=== PATIENT | male | born 1945 | race Hispanic/Latino ===

== ENCOUNTER 2021-02-27 16:39 | Emergency (ER) | payer MEDICARE ==
[2021-02-27 19:40] LABS: Bilirubin Neg (Negative); Blood, Urine 25 (Negative); Clarity Clear (Clear); Glucose, Urine (Dipstick) Normal (Negative); Ketone, Urine Negative (Negative); Leukocyte 25 (Negative); Nitrite Negative (Negative); Protein, Urine (Dipstick) 15 mg/dl (Neg-Trace); Specific Gravity, Urine 1.015 (1.002-1.036); Urobilinogen Normal mg/dL (Less than 2)
[2021-02-27 19:58] LABS: Anion Gap 10 mmol/L (10-20); BUN (Urea Nitrogen) 14 mg/dL (8.4-25.7); Calc. Creatinine Clearance 0 mL/min (70-130); Calcium 8.5 mg/dL (7.8-10.44); Carbon Dioxide 25 mmol/L (23-31); Chloride 107 mmol/L (98-107); Glucose 105 mg/dL (83-110); Potassium 4.3 mmol/L (3.5-5.1); Sodium 138 mmol/L (136-145)
[2021-02-27 20:10] LABS: RBC/HPF 0-3 HPF (0-3); WBC/HPF 0-3 HPF (0-3)
[2021-02-27 20:11] LABS: Bacteria/HPF None Seen HPF (None Seen); Squamous Epithelial None Seen HPF (0-3)
== END 2021-02-27 20:38 | disposition home or self-care (01) ==
LOC: CSHERS 16:39
DX: R33.9 Retention of urine, unspecified (principal)
CPT/HCPCS: 36415; 51702; 80048; 81003; 81015

== ENCOUNTER 2023-01-16 07:23 | Emergency (ER) | payer MEDICARE, OTHER ==
[2023-01-16 08:20] LABS: Bilirubin Neg (Negative); Blood, Urine 10 (Negative); Clarity Clear (Clear); Glucose, Urine (Dipstick) Normal (Negative); Ketone, Urine Negative (Negative); Leukocyte Negative (Negative); Nitrite Negative (Negative); Protein, Urine (Dipstick) 15 mg/dl (Neg-Trace); Urobilinogen Normal mg/dL (Less than 2)
[2023-01-16 08:35] LABS: Bacteria/HPF None Seen HPF (None Seen); RBC/HPF 0-3 HPF (0-3); Squamous Epithelial None Seen HPF (0-3); WBC/HPF 0-3 HPF (0-3)
== END 2023-01-16 09:30 | disposition home or self-care (01) ==
LOC: CSHERS 07:23
DX: R33.9 Retention of urine, unspecified (principal)
CPT/HCPCS: 51702; 81003; 81015

== ENCOUNTER 2023-01-18 21:56 | Emergency (ER) | payer OTHER ==
[2023-01-18 22:57] LABS: Bilirubin Neg (Negative); Blood, Urine 250 (Negative); Clarity Clear (Clear); Glucose, Urine (Dipstick) Normal (Negative); Ketone, Urine Negative (Negative); Leukocyte 100 (Negative); Nitrite Negative (Negative); Protein, Urine (Dipstick) 100 mg/dl (Neg-Trace); Specific Gravity, Urine 1.015 (1.005-1.030); pH, Urine 6.5 (5.0-9.0)
[2023-01-18 23:08] LABS: Bacteria/HPF 1+ HPF (None Seen); Squamous Epithelial 0-3 HPF (0-3); WBC/HPF 0-3 HPF (0-3)
== END 2023-01-18 23:23 | disposition home or self-care (01) ==
LOC: CSHERS 21:56
DX: T83.031A Leakage of indwelling urethral catheter, initial encounter (principal)
CPT/HCPCS: 51702; 81003; 81015

== ENCOUNTER 2023-03-08 05:32 | Emergency (ER) | payer OTHER ==
[2023-03-08 06:13] LABS: Bilirubin Neg (Negative); Blood, Urine Negative (Negative); Clarity Clear (Clear); Glucose, Urine (Dipstick) Normal (Negative); Ketone, Urine Negative (Negative); Leukocyte Negative (Negative); Nitrite Negative (Negative); Protein, Urine (Dipstick) 15 mg/dl (Neg-Trace); pH, Urine 6.5 (5.0-9.0)
== END 2023-03-08 06:24 | disposition home or self-care (01) ==
LOC: CSHERS 05:32
DX: R33.9 Retention of urine, unspecified (principal)
CPT/HCPCS: 51702; 81003

== ENCOUNTER 2023-06-26 09:22 | Outpatient (CLI) | payer OTHER ==
[2023-06-26] MEDS ORDERED: Iopamidol 300 61% 100 ML VIAL FS ONE (10:22)
== END 2023-06-26 09:23 | disposition home or self-care (01) ==
LOC: CSHCT 09:22
PROVIDERS: ATTEND Urology
DX: N40.1 Benign prostatic hyperplasia with lower urinary tract symptoms (principal); R33.9 Retention of urine, unspecified; Z87.440 Personal history of urinary (tract) infections; N28.1 Cyst of kidney, acquired; K57.90 Diverticulosis of intestine, part unspecified, without perforation or abscess without bleeding; M89.8X8 Other specified disorders of bone, other site
CPT/HCPCS: 74178; 82565; Q9967

== ENCOUNTER 2023-07-03 12:20 | Outpatient (CLI) | payer OTHER | END 2023-07-03 12:21 | disposition home or self-care (01) | LOC: CSHMRI 12:20 | PROVIDERS: ATTEND Urology | DX: N40.1 Benign prostatic hyperplasia with lower urinary tract symptoms (principal); R97.20 Elevated prostate specific antigen [PSA]; R33.9 Retention of urine, unspecified; Z87.440 Personal history of urinary (tract) infections; Z98.890 Other specified postprocedural states | CPT/HCPCS: 72197; 82565 ==

== ENCOUNTER 2023-07-21 10:09 | Inpatient (IN) | payer OTHER ==
[2023-07-21 12:14] LABS: Hematocrit 36.5 % (38.8-50.0); Hemoglobin 11.8 g/dL (13.5-17.5); Mean Corpuscular HGB CONC 32.3 g/dL (32.0-36.0); Mean Corpuscular Hemoglobin 31.4 pg (27.0-33.0); Mean Corpuscular Volume 97.1 fl (81.2-95.1); Mean Platelet Volume 8.9 fl (7.4-10.4); Platelet Count 155 10x3/uL (130-400); RBC Distribution Width 15.4 % (11.5-14.5); Red Blood Cell (RBC) Count 3.76 10x6/uL (4.32-5.72); White Blood Cell (WBC) Count 19.5 10x3/uL (3.5-10.5)
[2023-07-21 12:15] LABS: MDiff Complete? YES
[2023-07-21] MEDS ORDERED: cefTRIAXone (ROCEPHIN) 2 GM VIAL ONE (12:20)
[2023-07-21 12:21] LABS: ALT (SGPT) Less than 7 U/L (8-55); AST (SGOT) 7 U/L (5-34); Albumin 4.3 g/dL (3.4-4.8); Alkaline Phosphatase 61 U/L (40-110); Bilirubin, Total 0.9 mg/dL (0.2-1.2); Globulin 3.3 g/dL (2.4-3.5); Protein, Total 7.6 g/dL (5.8-8.1)
[2023-07-21] MEDS ORDERED: Vancomycin 1 GM VIAL ONE (12:21)
[2023-07-21] MEDS ORDERED: Vancomycin HCl 500 MG VIAL ONE (12:21)
[2023-07-21 12:22] LABS: Anion Gap 20 mmol/L (10-20); BUN (Urea Nitrogen) 16 mg/dL (8.4-25.7); Calc. Creatinine Clearance 0 mL/min (70-130); Calcium 9.4 mg/dL (7.6-10.4); Carbon Dioxide 18 mmol/L (23-31); Chloride 105 mmol/L (98-107); Estimated GFR 45; Glucose 227 mg/dL (83-110)
[2023-07-21 12:23] LABS: Potassium 3.3 mmol/L (3.5-5.1); Sodium 140 mmol/L (136-145)
[2023-07-21 12:57] LABS: Bilirubin Neg (Negative); Blood, Urine 250 (Negative); Clarity Bloody (Clear); Glucose, Urine (Dipstick) 100 mg/dL (Negative); Ketone, Urine 5 mg/dL (Negative); Leukocyte 100 (Negative); Nitrite Negative (Negative); Protein, Urine (Dipstick) 100 mg/dl (Neg-Trace)
[2023-07-21 13:12] LABS: RBC/HPF Greater than 50 HPF (0-3)
[2023-07-21 13:13] LABS: Bacteria/HPF Rare-Few HPF (None Seen); CAUTI Indications for Culture Dysuria,urgency,freq; Squamous Epithelial 0-3 HPF (0-3); WBC/HPF 0-3 HPF (0-3)
[2023-07-21 13:14] LABS: Urine Culture Reflex No No
[2023-07-21 13:17] LABS: Band 18 % (5-11); Lymphocytes 2 % (21-51); Monocytes 23 % (0-10); Neutrophil 57 % (42-75)
[2023-07-21 13:20] LABS: Anisocytosis SLIGHT = 6-15 cells (100X) (0-5/hpf); Macrocytosis SLIGHT = 6-15 cells (100X) (0-5/hpf); Ovalocytes SLIGHT = 2-5 cells (100X) (0-1/hpf)
[2023-07-21 13:21] LABS: Platelet Adequacy Comment Appears Adequate
[2023-07-21] MEDS ORDERED: Potassium Chloride 20 MEQ TAB ONE (14:04)
[2023-07-21 15:08] LABS: Lactic Acid 2.2 mmol/L (0.5-2.2)
[2023-07-21] MEDS ORDERED: Iopamidol 300 61% 100 ML VIAL FS ONE (15:12)
[2023-07-21] MEDS ORDERED: Ondansetron PF 4 MG/2 ML Vial ONE (17:36)
[2023-07-21] MEDS ORDERED: Senokot S 8.6-50 MG TAB PO PRN (17:42)
[2023-07-21] MEDS ORDERED: Ondansetron ODT 4 MG TAB PO PRN (17:42)
[2023-07-21] MEDS ORDERED: Acetaminophen 325 MG TAB PO PRN (17:42)
[2023-07-21] MEDS ORDERED: Acetaminophen 650 MG Suppository PR PRN (17:42)
[2023-07-21] MEDS ORDERED: Guaifenesin DM 100-10/5 ML UDCUP PO PRN (17:42)
[2023-07-21] MEDS ORDERED: Ondansetron PF 4 MG/2 ML Vial IVP PRN (17:42)
[2023-07-21] MEDS: Sodium Chloride 0.9% 1,000 ML IV SCH (20:15)
[2023-07-21 20:16] VITALS: BMI 18.7
[2023-07-21] MEDS ORDERED: Vancomycin 1 GM in Premix Bag 1 BAG IVPB SCH (21:00)
[2023-07-21] MEDS: Famotidine 20 MG TAB PO SCH (22:36)
[2023-07-21] MEDS: Zolpidem Tartrate 5 MG TAB PO PRN (23:10)
[2023-07-22 04:04] LABS: Anion Gap 13 mmol/L (10-20); BUN (Urea Nitrogen) 13 mg/dL (8.4-25.7); Calc. Creatinine Clearance 46 mL/min (70-130); Calcium 7.8 mg/dL (7.8-10.44); Carbon Dioxide 21 mmol/L (23-31); Chloride 109 mmol/L (98-107); Estimated GFR 62; Glucose 102 mg/dL (83-110); Magnesium 1.7 mg/dL (1.6-2.6); Potassium 3.9 mmol/L (3.5-5.1); Sodium 139 mmol/L (136-145)
[2023-07-22 04:30] LABS: #Monocytes 2.3 10x3/uL (0.0-1.1); #Neutrophils 9.9 10x3/uL (1.5-8.4); %Basophils 0.1 % (0.0-2.0); %Lymphocytes 4.5 % (18.0-47.0); %Monocytes 17.6 % (0.0-10.0); %Neutrophils 76.6 % (40.0-75.0); Hemoglobin 9.6 g/dL (13.5-17.5); Mean Corpuscular Hemoglobin 31.7 pg (27.0-33.0); Platelet Count 94 10x3/uL (150-450); RBC Distribution Width 15.4 % (11.5-14.5); Red Blood Cell (RBC) Count 3.03 10x6/uL (4.32-5.72); White Blood Cell (WBC) Count 12.9 10x3/uL (3.5-10.5)
[2023-07-22] MEDS: Sodium Chloride 0.9% 1,000 ML IV SCH (06:42)
[2023-07-22] MEDS ORDERED: Magnesium 2 GM/50 ML(in water) 2 GM in Premix Bag 1 BAG IVPB SCH (08:00)
[2023-07-22] MEDS: cefTRIAXone\\ROCEPHIN 2 GM in Sodium Chloride 0.9% 100 ML IVPB SCH (14:00)
[2023-07-22] MEDS: Vancomycin HCl 750 MG in Sodium Chloride 0.9% 250 ML 250 ML IVPB SCH (14:01)
[2023-07-22] MEDS: Zolpidem Tartrate 5 MG TAB PO PRN (21:33)
[2023-07-22] MEDS: Famotidine 20 MG TAB PO SCH (21:33)
[2023-07-23] MEDS: Sodium Chloride 0.9% 1,000 ML IV SCH ×3 (06:28→23:15)
[2023-07-23 07:23] LABS: #Monocytes 0.8 10x3/uL (0.0-1.1); #Neutrophils 5.4 10x3/uL (1.5-8.4); %Basophils 0.1 % (0.0-2.0); %Eosinophils 0.1 % (0.0-6.0); %Lymphocytes 7.4 % (18.0-47.0); %Monocytes 12.2 % (0.0-10.0); %Neutrophils 78.3 % (40.0-75.0); Hematocrit 29.9 % (38.8-50.0); Hemoglobin 9.6 g/dL (13.5-17.5); Mean Corpuscular HGB CONC 32.1 g/dL (32.0-36.0); Mean Corpuscular Hemoglobin 31.3 pg (27.0-33.0); Mean Corpuscular Volume 97.4 fl (81.2-95.1); Mean Platelet Volume 8.8 fl (7.4-10.4); Platelet Count 88 10x3/uL (150-450); RBC Distribution Width 15.2 % (11.5-14.5); Red Blood Cell (RBC) Count 3.07 10x6/uL (4.32-5.72); White Blood Cell (WBC) Count 6.9 10x3/uL (3.5-10.5)
[2023-07-23 07:42] LABS: Anion Gap 11 mmol/L (10-20); BUN (Urea Nitrogen) 17 mg/dL (8.4-25.7); Calc. Creatinine Clearance 51 mL/min (70-130); Carbon Dioxide 20 mmol/L (23-31); Chloride 109 mmol/L (98-107); Estimated GFR 70; Glucose 88 mg/dL (83-110); Magnesium 1.9 mg/dL (1.6-2.6); Potassium 3.6 mmol/L (3.5-5.1); Sodium 136 mmol/L (136-145)
[2023-07-23 12:36] LABS: Vancomycin, Trough 5.8 ug/mL
[2023-07-23] MEDS: cefTRIAXone\\ROCEPHIN 2 GM in Sodium Chloride 0.9% 100 ML IVPB SCH (14:34)
[2023-07-23] MEDS: Vancomycin HCl 750 MG in Sodium Chloride 0.9% 250 ML 250 ML IVPB SCH (14:34)
[2023-07-23] MEDS: Famotidine 20 MG TAB PO SCH (20:56)
[2023-07-23] MEDS: Magnesium Oxide 400 MG TAB PO SCH (20:56)
[2023-07-23] MEDS: Zolpidem Tartrate 5 MG TAB PO PRN (23:14)
[2023-07-24] MEDS: Magnesium Oxide 400 MG TAB PO SCH (09:36)
[2023-07-24 11:36] VITALS: BP 143/63; TEMP 98.1
[2023-07-24] MEDS: cefTRIAXone\\ROCEPHIN 2 GM in Sodium Chloride 0.9% 100 ML IVPB SCH (13:05)
[2023-07-24] MEDS: Vancomycin HCl 750 MG in Sodium Chloride 0.9% 250 ML 250 ML IVPB SCH (13:05)
[2023-07-24] MEDS: Sodium Chloride 0.9% 1,000 ML IV SCH (13:06)
== END 2023-07-24 16:25 | disposition home or self-care (01) | DRG 698 ==
LOC: CSHERS 10:09 → CSHTELE 16:44 → CSHICU 20:41 → CSHTELE 20:41
PROVIDERS: ADMIT Emergency Medicine; ATTEND Internal Medicine
PROC: 0T2BX0Z Change Drainage Device in Bladder, External Approach (ICD-10-PCS; principal; 2023-07-21)
PROC: 3E03329 Introduction of Other Anti-infective into Peripheral Vein, Percutaneous Approach (ICD-10-PCS; 2023-07-21)
DX: T83.511A Infection and inflammatory reaction due to indwelling urethral catheter, initial encounter (principal); A41.2 Sepsis due to unspecified staphylococcus; A41.52 Sepsis due to Pseudomonas; R65.20 Severe sepsis without septic shock; E87.20 Acidosis, unspecified; N30.01 Acute cystitis with hematuria; N17.9 Acute kidney failure, unspecified; N40.1 Benign prostatic hyperplasia with lower urinary tract symptoms; R33.8 Other retention of urine; G47.00 Insomnia, unspecified; E87.6 Hypokalemia; N18.30 Chronic kidney disease, stage 3 unspecified; Y83.8 Other surgical procedures as the cause of abnormal reaction of the patient, or of later complication, without mention of misadventure at the time of the procedure; Z79.899 Other long term (current) drug therapy; Z98.890 Other specified postprocedural states
CPT/HCPCS: 36415; 74177; 80048; 80053; 80202; 81001; 83605; 83735; 85025; 87040; 87086; 94760; J0696; J1650; J2405; J3370; J3475; J3490; J7050; Q9967

== ENCOUNTER 2023-08-10 09:21 | Emergency (ER) | payer OTHER ==
[2023-08-10 11:08] LABS: #Monocytes 1.3 10x3/uL (0.0-1.1); #Neutrophils 5.3 10x3/uL (1.5-8.4); %Basophils 0.1 % (0.0-2.0); %Lymphocytes 3.6 % (18.0-47.0); %Monocytes 18.1 % (0.0-10.0); %Neutrophils 76.5 % (40.0-75.0); Hematocrit 37.9 % (38.8-50.0); Hemoglobin 12.3 g/dL (13.5-17.5); Mean Corpuscular HGB CONC 32.5 g/dL (32.0-36.0); Mean Corpuscular Hemoglobin 31.1 pg (27.0-33.0); Mean Corpuscular Volume 95.7 fl (81.2-95.1); Mean Platelet Volume 9.1 fl (7.4-10.4); Platelet Count 139 10x3/uL (150-450); Red Blood Cell (RBC) Count 3.96 10x6/uL (4.32-5.72)
[2023-08-10 11:34] LABS: ALT (SGPT) 7 U/L (8-55); AST (SGOT) 13 U/L (5-34); Albumin 4.1 g/dL (3.4-4.8); Alkaline Phosphatase 55 U/L (40-110); Anion Gap 13 mmol/L (10-20); BUN (Urea Nitrogen) 23 mg/dL (8.4-25.7); Bilirubin, Total 0.7 mg/dL (0.2-1.2); Calc. Creatinine Clearance 0 mL/min (70-130); Calcium 8.9 mg/dL (7.8-10.44); Carbon Dioxide 24 mmol/L (23-31); Chloride 106 mmol/L (98-107); Estimated GFR 46; Glucose 114 mg/dL (83-110); Potassium 3.9 mmol/L (3.5-5.1); Protein, Total 7.1 g/dL (5.8-8.1); Sodium 139 mmol/L (136-145)
[2023-08-10 13:14] LABS: Bilirubin Neg (Negative); Blood, Urine Negative (Negative); Clarity Clear (Clear); Glucose, Urine (Dipstick) Normal (Negative); Ketone, Urine Negative (Negative); Leukocyte Negative (Negative); Nitrite Negative (Negative); Protein, Urine (Dipstick) Negative (Neg-Trace); Urobilinogen Normal mg/dL (Less than 2)
[2023-08-10 13:26] LABS: Bacteria/HPF None Seen HPF (None Seen); CAUTI Indications for Culture Dysuria,urgency,freq; RBC/HPF 0-3 HPF (0-3); Squamous Epithelial 0-3 HPF (0-3); WBC/HPF 0-3 HPF (0-3)
[2023-08-10 13:28] LABS: Urine Culture Reflex No No
== END 2023-08-10 14:38 | disposition home or self-care (01) ==
LOC: CSHERS 09:21
DX: T83.091A Other mechanical complication of indwelling urethral catheter, initial encounter (principal); N17.9 Acute kidney failure, unspecified
CPT/HCPCS: 51702; 80053; 81001; 83735; 85025; 96360; 96361

== ENCOUNTER 2023-11-03 10:51 | Emergency (ER) | payer OTHER ==
[2023-11-03 12:04] LABS: ALT (SGPT) Less than 7 U/L (8-55); AST (SGOT) 11 U/L (5-34); Albumin 4.3 g/dL (3.4-4.8); Alkaline Phosphatase 59 U/L (40-110); Anion Gap 14 mmol/L (10-20); BUN (Urea Nitrogen) 16 mg/dL (8.4-25.7); Bilirubin, Total 0.6 mg/dL (0.2-1.2); Calc. Creatinine Clearance 0 mL/min (70-130); Calcium 9.1 mg/dL (7.8-10.44); Carbon Dioxide 24 mmol/L (23-31); Chloride 104 mmol/L (98-107); Estimated GFR 41; Globulin 3.2 g/dL (2.4-3.5); Glucose 247 mg/dL (83-110); Potassium 3.3 mmol/L (3.5-5.1); Protein, Total 7.5 g/dL (5.8-8.1); Sodium 139 mmol/L (136-145)
[2023-11-03 12:31] LABS: Bilirubin Neg (Negative); Blood, Urine 50 (Negative); Clarity Clear (Clear); Glucose, Urine (Dipstick) Normal (Negative); Ketone, Urine Negative (Negative); Leukocyte 25 (Negative); Nitrite Negative (Negative); Protein, Urine (Dipstick) 30 mg/dl (Neg-Trace); Specific Gravity, Urine 1.015 (1.005-1.030)
[2023-11-03 12:35] LABS: %Basophils 0.3 % (0.0-2.0); %Eosinophils 0.1 % (0.0-6.0); %Lymphocytes 6.1 % (18.0-47.0); %Monocytes 12.4 % (0.0-10.0); %Neutrophils 78.6 % (40.0-75.0); Hematocrit 39.1 % (38.8-50.0); Hemoglobin 12.8 g/dL (13.5-17.5); Mean Corpuscular HGB CONC 32.7 g/dL (32.0-36.0); Mean Corpuscular Hemoglobin 31.4 pg (27.0-33.0); Mean Corpuscular Volume 96.1 fl (81.2-95.1); Mean Platelet Volume 8.7 fl (7.4-10.4); Platelet Count 141 10x3/uL (150-450); RBC Distribution Width 14.1 % (11.5-14.5); Red Blood Cell (RBC) Count 4.07 10x6/uL (4.32-5.72); White Blood Cell (WBC) Count 7.7 10x3/uL (3.5-10.5)
[2023-11-03 12:58] LABS: Bacteria/HPF None Seen HPF (None Seen); CAUTI Indications for Culture Dysuria,urgency,freq; Squamous Epithelial 0-3 HPF (0-3); WBC/HPF 0-3 HPF (0-3)
[2023-11-03 12:59] LABS: Mucous/LPF 1+ LPF (<2+); Urine Culture Reflex No No
== END 2023-11-03 13:21 | disposition home or self-care (01) ==
LOC: CSHERS 10:51
DX: N39.0 Urinary tract infection, site not specified (principal); T83.091A Other mechanical complication of indwelling urethral catheter, initial encounter; Y84.6 Urinary catheterization as the cause of abnormal reaction of the patient, or of later complication, without mention of misadventure at the time of the procedure
CPT/HCPCS: 36415; 51702; 80053; 81001; 85025; 99283

== ENCOUNTER 2023-12-17 01:57 | Emergency (ER) | payer OTHER ==
[2023-12-17] MEDS ORDERED: HYDROcodone/Acetaminophen 10/325 mg Tablet ONE (03:40)
[2023-12-17 04:35] LABS: ALT (SGPT) 8 U/L (8-55); AST (SGOT) 11 U/L (5-34); Albumin 3.9 g/dL (3.4-4.8); Alkaline Phosphatase 55 U/L (40-110); Anion Gap 11 mmol/L (10-20); BUN (Urea Nitrogen) 13 mg/dL (8.4-25.7); Bilirubin, Total 0.6 mg/dL (0.2-1.2); Calc. Creatinine Clearance 0 mL/min (70-130); Calcium 8.7 mg/dL (7.8-10.44); Carbon Dioxide 26 mmol/L (23-31); Chloride 105 mmol/L (98-107); Estimated GFR 56; Globulin 2.8 g/dL (2.4-3.5); Glucose 122 mg/dL (83-110); Magnesium 1.9 mg/dL (1.6-2.6); Potassium 3.6 mmol/L (3.5-5.1); Protein, Total 6.7 g/dL (5.8-8.1); Sodium 138 mmol/L (136-145)
[2023-12-17 04:40] LABS: Hematocrit 35.6 % (38.8-50.0); Hemoglobin 11.7 g/dL (13.5-17.5); Mean Corpuscular HGB CONC 32.9 g/dL (32.0-36.0); Mean Corpuscular Hemoglobin 31.6 pg (27.0-33.0); Mean Corpuscular Volume 96.2 fl (81.2-95.1); Mean Platelet Volume 9.1 fl (7.4-10.4); Platelet Count 118 10x3/uL (150-450); RBC Distribution Width 14.1 % (11.5-14.5); White Blood Cell (WBC) Count 9.4 10x3/uL (3.5-10.5)
[2023-12-17 04:46] LABS: Bilirubin Neg (Negative); Blood, Urine 250 (Negative); Clarity Cloudy (Clear); Glucose, Urine (Dipstick) Normal (Negative); Ketone, Urine Negative (Negative); Leukocyte 500 (Negative); Nitrite Negative (Negative); Protein, Urine (Dipstick) 30 mg/dl (Neg-Trace); Specific Gravity, Urine 1.005 (1.005-1.030)
[2023-12-17 05:01] LABS: Lymphocytes 11 % (21-51); Monocytes 16 % (0-10); Neutrophil 73 % (42-75); Platelet Adequacy Comment Appears Decreased; RBC Morph Comment Within Normal Limits
[2023-12-17 05:15] LABS: MDiff Complete? YES
[2023-12-17 05:25] LABS: RBC/HPF Greater than 50 HPF (0-3)
[2023-12-17 05:26] LABS: Bacteria/HPF 4+ HPF (None Seen); CAUTI Indications for Culture Pelvic or flank pain; Squamous Epithelial 0-3 HPF (0-3); Transitional Epithelial 0-3 HPF (None Seen)
[2023-12-17 05:27] LABS: Urine Culture Reflex No No
[2023-12-17] MEDS ORDERED: Ciprofloxacin 500 MG TAB PO SCH (05:45)
[2023-12-17] MEDS ORDERED: cefTRIAXone (ROCEPHIN) 2 GM VIAL ONE (05:50)
== END 2023-12-17 06:45 | disposition home or self-care (01) ==
LOC: CSHERS 01:57
DX: T83.018A Breakdown (mechanical) of other urinary catheter, initial encounter (principal); N39.0 Urinary tract infection, site not specified; R31.9 Hematuria, unspecified
CPT/HCPCS: 36415; 51798; 80053; 81001; 83605; 83735; 85025; 87077; 87086; 87186; 96365; J0696

== ENCOUNTER 2024-03-31 14:28 | Emergency (ER) | payer OTHER ==
[2024-03-31 15:42] LABS: Bilirubin Neg (Negative); Blood, Urine 250 (Negative); Clarity Cloudy (Clear); Glucose, Urine (Dipstick) Normal (Negative); Ketone, Urine 5 mg/dL (Negative); Leukocyte 500 (Negative); Nitrite Negative (Negative); Protein, Urine (Dipstick) 30 mg/dl (Neg-Trace); Specific Gravity, Urine 1.015 (1.005-1.030); Urobilinogen Normal mg/dL (Less than 2)
[2024-03-31 16:38] LABS: Bacteria/HPF Rare-Few HPF (None Seen); CAUTI Indications for Culture Pelvic or flank pain; Mucous/LPF 2+ LPF (<2+); RBC/HPF Greater than 50 HPF (0-3); Squamous Epithelial None Seen HPF (0-3); WBC/HPF Greater Than 50 HPF (0-3)
[2024-03-31 16:39] LABS: Transitional Epithelial 0-3 HPF (None Seen)
[2024-03-31 16:41] LABS: Urine Culture Reflex Yes Yes
== END 2024-03-31 17:05 | disposition home or self-care (01) ==
LOC: CSHERS 14:28
DX: T83.091A Other mechanical complication of indwelling urethral catheter, initial encounter (principal)
CPT/HCPCS: 81001; 87086; 99283

== ENCOUNTER 2024-05-14 15:46 | Emergency (ER) | payer OTHER | END 2024-05-14 17:54 | disposition home or self-care (01) | LOC: CSHERS 15:46 | DX: T83.091A Other mechanical complication of indwelling urethral catheter, initial encounter (principal) | CPT/HCPCS: 51702; 99283 ==

== ENCOUNTER 2024-08-21 14:45 | Emergency (ER) | payer OTHER ==
[~2024-08-21 14:45] MED LIST: Iopamidol 300 61% 100 ML VIAL FS ONE
[2024-08-21 16:07] LABS: Clarity Slightly Cloudy (Clear)
[2024-08-21 16:21] LABS: Glucose, Urine (Dipstick) Unable to Interpret mg/dL (Negative); Ketone, Urine Unable to Interpret mg/dL (Negative); Leukocyte Unable to Interpret (Negative); Nitrite Unable to Interpret (Negative); Protein, Urine (Dipstick) Unable to Interpret mg/dl (Neg-Trace)
[2024-08-21 16:22] LABS: Bacteria/HPF Rare-Few HPF (None Seen); Bilirubin Unable to Interpret (Negative); Blood, Urine Unable to Interpret (Negative); CAUTI Indications for Culture Dysuria,urgency,freq; RBC/HPF 0-3 HPF (0-3); Squamous Epithelial 0-3 HPF (0-3); Urobilinogen UNABLE TO INTERPRET mg/dL (Less than 2); WBC/HPF 21-50 HPF (0-3)
[2024-08-21 16:24] LABS: Urine Culture Reflex Yes Yes
[2024-08-21] MEDS ORDERED: LevoFLOXacin 500 MG TAB ONE (17:34)
[2024-08-21 18:04] LABS: ALT (SGPT) Less than 7 U/L (8-55); AST (SGOT) 11 U/L (5-34); Albumin 3.5 g/dL (3.4-4.8); Alkaline Phosphatase 59 U/L (40-110); Anion Gap 15 mmol/L (10-20); BUN (Urea Nitrogen) 18 mg/dL (8.4-25.7); Bilirubin, Total 0.7 mg/dL (0.2-1.2); Calc. Creatinine Clearance 0 mL/min (70-130); Calcium 9.5 mg/dL (7.8-10.44); Carbon Dioxide 22 mmol/L (23-31); Chloride 102 mmol/L (98-107); Estimated GFR 48; Globulin 3.8 g/dL (2.4-3.5); Glucose 94 mg/dL (83-110); Lipase 80 U/L (8-78); Potassium 3.2 mmol/L (3.5-5.1); Protein, Total 7.3 g/dL (5.8-8.1); Sodium 136 mmol/L (136-145)
[2024-08-21 18:06] LABS: #Basophils 0.03 10x3/uL (0.0-0.2); #Eosinphils 0.06 10x3/uL (0.0-0.5); #Monocytes 4.62 10x3/uL (0.0-1.1); #Neutrophils 18.54 10x3/uL (1.5-8.4); %Basophils 0.1 % (0.0-2.0); %Eosinophils 0.2 % (0.0-6.0); %Monocytes 18.9 % (0.0-10.0); %Neutrophils 75.8 % (40.0-75.0); Hematocrit 34.8 % (38.8-50.0); Hemoglobin 11.5 g/dL (13.5-17.5); Mean Corpuscular Hemoglobin 31.3 pg (27.0-33.0); Mean Corpuscular Volume 94.8 fL (81.2-95.1); Red Blood Cell (RBC) Count 3.67 10x6/uL (4.32-5.72); White Blood Cell (WBC) Count 24.5 10x3/uL (3.5-10.5)
[2024-08-21 18:08] LABS: Mean Platelet Volume 9.3 fL (7.4-10.4); Platelet Count 129 10x3/uL (150-450)
[2024-08-21] MEDS ORDERED: Cefepime 2 GM VIAL ONE (19:15)
[2024-08-21] MEDS ORDERED: Vancomycin 1.5 GRAM/300 ML BAG 1.5 GM in Premix 1 BAG IVPB SCH (19:45)
== END 2024-08-21 23:14 | disposition short-term general hospital (02) ==
LOC: CSHERS 14:45
DX: A41.9 Sepsis, unspecified organism (principal); N39.0 Urinary tract infection, site not specified; N45.2 Orchitis; N45.1 Epididymitis
CPT/HCPCS: 74177; 76870; 80053; 81001; 83605; 83690; 83735; 84145; 85025; 87040; 87077; 87086; 87186; 93976; J0692; J3370; Q9967; 36415; 51702; 87149; 96374; 96375